=== PATIENT | male | born 1970 | race Caucasian/White ===

== ENCOUNTER 2016-05-05 19:28 | Emergency (ER) | payer OTHER ==
[2013-01-30 04:21] VITALS: BMI 35.7
[~2016-05-05 19:28] MED LIST: ATIVAN1 MG PO
== END 2016-05-05 22:36 | disposition home or self-care (01) ==
LOC: D.ER 19:28
DX: K02.9 Dental caries, unspecified (principal); F43.10 Post-traumatic stress disorder, unspecified

== ENCOUNTER 2016-08-29 13:59 | Emergency (ER) | payer MEDICAID ==
[2013-01-30 04:21] VITALS: BMI 35.7
== END 2016-08-29 17:18 | disposition home or self-care (01) ==
LOC: D.ER 13:59
DX: K02.9 Dental caries, unspecified (principal); K08.89 Other specified disorders of teeth and supporting structures; K05.10 Chronic gingivitis, plaque induced; S02.5XXA Fracture of tooth (traumatic), initial encounter for closed fracture; X58.XXXA Exposure to other specified factors, initial encounter; Y93.89 Activity, other specified; Y92.89 Other specified places as the place of occurrence of the external cause; K12.2 Cellulitis and abscess of mouth; F43.10 Post-traumatic stress disorder, unspecified

== ENCOUNTER 2016-09-17 00:58 | Emergency (ER) | payer MEDICAID ==
[2013-01-30 04:21] VITALS: BMI 35.7
== END 2016-09-17 02:11 | disposition home or self-care (01) ==
LOC: D.ER 00:58
DX: S40.011A Contusion of right shoulder, initial encounter (principal); W19.XXXA Unspecified fall, initial encounter; M54.5 Low back pain; M79.605 Pain in left leg; M79.604 Pain in right leg; M79.1 Myalgia

== ENCOUNTER 2016-10-30 23:14 | Emergency (ER) | payer MEDICAID ==
[2013-01-30 04:21] VITALS: BMI 35.7
== END 2016-10-30 23:40 | disposition home or self-care (01) ==
LOC: D.ER 23:14
DX: T81.4XXA Infection following a procedure, initial encounter (principal); M27.2 Inflammatory conditions of jaws; F43.10 Post-traumatic stress disorder, unspecified; K02.9 Dental caries, unspecified; K08.89 Other specified disorders of teeth and supporting structures; K05.10 Chronic gingivitis, plaque induced; K04.7 Periapical abscess without sinus; S02.5XXA Fracture of tooth (traumatic), initial encounter for closed fracture; X58.XXXA Exposure to other specified factors, initial encounter; Y93.89 Activity, other specified; Y92.89 Other specified places as the place of occurrence of the external cause

== ENCOUNTER 2017-01-04 23:58 | Inpatient (IN) | payer MEDICAID ==
[2017-01-05 00:40] LABS: BASOPHILS 0.4 % (0-2); EOSINOPHILS 1.7 % (0-7); HEMATOCRIT 47.8 % (42.0-54.0); HEMOGLOBIN 16.1 g/dL (13.5-17.5); IMMATURE GRANULOCYTES 0.3 % (0-5); LYMPHOCYTES 17.4 % (15-50); MCH 29.4 pg (26.0-34.0); MCHC 33.7 g/dL (31.0-37.0); MCV 87.4 fL (80.0-100.0); MEAN PLATELET VOLUME 8.6 fL (7.4-10.4); MONOCYTES 14.1 % (2-11); NEUTROPHILS 66.1 % (40-80); RBC 5.47 10x6/uL (4.20-6.10); RDW 13.5 % (11.5-14.5); WBC 9.5 10x3/uL (4.8-10.8)
[2017-01-05 00:41] LABS: PLATELET COUNT 324 10x3/uL (130-400)
[2017-01-05 00:47] LABS: APTT 26.5 SECONDS (22.8-39.4); INR 0.94 (0.85-1.17); PROTIME 12.4 SECONDS (11.6-15.0)
[2017-01-05 00:53] LABS: ALBUMIN 3.6 g/dL (3.4-5.0); ALKALINE PHOSPHATASE 63 U/L (46-116); ALT (SGPT) 29 U/L (10-68); BILIRUBIN - TOTAL 0.25 mg/dL (0.2-1.3); CALC OSMOLALITY 274 mosm/kg (275-300); CALCIUM 8.6 mg/dL (8.5-10.1); CHLORIDE - SERUM 101 mmol/L (98-107); CREATININE - SERUM 0.8 mg/dL (0.6-1.3); GLUCOSE 104 mg/dL (74-106); POTASSIUM - SERUM 3.7 mmol/L (3.5-5.1); PROTEIN - SERUM 7.8 g/dL (6.4-8.2); SODIUM 138 mmol/L (136-145); UREA NITROGEN 10 mg/dL (7-18); eGFR NON AFRICAN AMERICAN > 90 mL/min (90-120)
[2017-01-05 01:00] LABS: AMYLASE - SERUM 46 U/L (25-115); C-REACTIVE PROTEIN 0.2 mg/dL (0.0-0.9); CREATINE KINASE 170 UL (21-232); LIPASE 111 U/L (73-393); PRO BNP 19 pg/mL (0-125)
[2017-01-05 01:03] LABS: TROPONIN-I < 0.017 ng/mL (0.000-0.060)
[2017-01-05 03:37] LABS: APPEARANCE CLEAR (CLEAR); BILIRUBIN NEGATIVE (NEGATIVE); COLOR YELLOW (YELLOW); GLUCOSE NEGATIVE (NEGATIVE); KETONE SMALL mg/dL (NEGATIVE); NITRITE NEGATIVE (NEGATIVE); PROTEIN NEGATIVE (NEGATIVE); SPECIFIC GRAVITY 1.025 (1.005-1.020); UROBILINOGEN NORMAL (NORMAL)
[2017-01-05 04:00] VITALS: BP 138/77
--- NOTE | 2017-01-05 04:10 | NUR ---
REC'D FROM [facility] IN ER BY WHEELCHAIR. ALERT AND ORIENTED X4. DENIED PAIN AT THIS TIME. DENIED NEEDS AT THIS TIME. PLACED TELEMTRY ON RUNNING 96 SINUS WITH PVCS. NO DISTRESS NOTED. INSTRUCTED TO CALL IF NEEDED ANYTHING, VERBALIZED UNDERSTANDING. BED LOW, LOCKED, CALL LIGHT IN REACH, ALARM ON.
[2017-01-05 04:32] VITALS: BP 138/77; BMI 36.7
--- NOTE | 2017-01-05 07:30 | NUR ---
PT AOX4 RESP EVEN AND NONLABORED PT DENIES NEEDS AT THIS TIME IV TO LEFT HAND PATENT AND INTACT AT THIS TIME SRX2 BED AT LOWEST SETTING CALL LIGHT WITHIN REACH WILL CONTINUE TO MONITOR
[2017-01-05 08:35] VITALS: BP 101/71
[2017-01-05 12:29] VITALS: BP 101/52
[2017-01-05 12:37] LABS: CHOL - HDL RATIO 5.6 ratio (2.3-4.9); LDL-HDL RATIO 4.2 ratio (1.5-3.5)
[2017-01-05 12:42] LABS: CKMB 0.9 U/L (0.0-3.6); CREATINE KINASE 195 UL (21-232)
[2017-01-05 12:43] LABS: TROPONIN-I < 0.017 ng/mL (0.000-0.060)
--- NOTE | 2017-01-05 15:10 | NUR ---
Patient Name: TERESA CASTRO Admission Status: ER Accout number: [id number] Admission Date: 01-05-2017 : 1970 Admission Diagnosis: Attending: GABRIEL MARQUEZ Current LOS: 1 Anticipated DC Date: 01-07-2017 Planned Disposition: Home Primary Insurance: [employer] JOSE Discharge Planning Comments: CM MET WITH PATIENT REGARDING D/C NEEDS AND PLANS. PATIENT STATED HE LIVES WITH HIS MOTHER AND THERE ARE 2 STEPS W/RAILS TO ENTER HOME AND NO STAIRS INSIDE. PATIENT STATED HE IS INDEPENDENT WITH HIS CARE AND HAS NO DME AT HOME. PATIENTS PCP ISS DR. SANCHEZ AND PHARMACY IS [facility]. PATIENT REFUSED HOME HEALTH AT THIS TIME. CM WILL CONTINUE TO FOLLOW PATIENT WITH D/C NEEDS AND PLANS. PCP DR. SANCHEZ [facility]- [phone] SHAHID ([phone]) Director Of Restaurant Operations: Macyrojelio Marsh Is the patient Alert and Oriented? Yes 0 * How many steps to enter\exit or inside your home? 2 W/RAILS 0 * PCP DR. SANCHEZ 0 * Pharmacy [facility] 0 * Preadmission Environment Home with Family 0 * ADLs Independent 0 * Equipment None 0 * List name and contact numbers for known caregivers / representatives who currently or will assist patient after discharge: SHAHID (SISTER) [phone] 0 * Community resources currently utilized None 0 * Additional services required to return to the preadmission environment? Yes 0 * Can the patient safely return to the preadmission environment? Yes 0 * Has this patient been hospitalized within the prior 30 days at any hospital? No 0 Grand Total: 0
[2017-01-05 16:16] VITALS: BP 132/87
--- NOTE | 2017-01-05 19:37 | NUR ---
PATIENT IS REQUESTING MEDICATION FOR A HEADACHE. HE STATED HIS PAIN IN HIS HEAD GOT WORSE AFTER BEING IN THE MRI MACHINE. HE STATED HE IS GETTING NAUSEOUS FROM THE PAIN. HE STATED HE HAD THE SAME HEADACHE LAST NIGHT AND IT HAS BEEN LINGERING SINCE LAST NIGHT BUT IS WORSE NOW THAT HE WAS IN THE MRI MACHINE. PAGED JAMEEL MONTES.
[2017-01-05 19:45] LABS: CKMB 0.8 U/L (0.0-3.6); CREATINE KINASE 198 UL (21-232)
[2017-01-05 19:47] LABS: TROPONIN-I < 0.017 ng/mL (0.000-0.060)
[2017-01-05 20:00] VITALS: BP 103/54
[2017-01-06] VITALS: BP 106/69
[2017-01-06 00:08] LABS: CKMB 0.8 U/L (0.0-3.6); CREATINE KINASE 204 UL (21-232)
[2017-01-06 00:09] LABS: TROPONIN-I < 0.017 ng/mL (0.000-0.060)
--- NOTE | 2017-01-06 00:29 | NUR ---
EDUCATED PATIENT ON SCDS. APPLIED SCDS TO BILATERAL LEGS.
[2017-01-06 04:53] LABS: BASOPHILS 0.4 % (0-2); EOSINOPHILS 1.6 % (0-7); HEMOGLOBIN 14.8 g/dL (13.5-17.5); IMMATURE GRANULOCYTES 0.1 % (0-5); LYMPHOCYTES 24.5 % (15-50); MCH 29.4 pg (26.0-34.0); MCHC 32.9 g/dL (31.0-37.0); MCV 89.3 fL (80.0-100.0); MEAN PLATELET VOLUME 8.7 fL (7.4-10.4); MONOCYTES 14.2 % (2-11); NEUTROPHILS 59.2 % (40-80); PLATELET COUNT 302 10x3/uL (130-400); RBC 5.04 10x6/uL (4.20-6.10); RDW 13.8 % (11.5-14.5); WBC 7.7 10x3/uL (4.8-10.8)
[2017-01-06 05:07] LABS: ALBUMIN 3.1 g/dL (3.4-5.0); ALKALINE PHOSPHATASE 51 U/L (46-116); ALT (SGPT) 24 U/L (10-68); BILIRUBIN - TOTAL 0.33 mg/dL (0.2-1.3); CALC OSMOLALITY 274 mosm/kg (275-300); CALCIUM 8.6 mg/dL (8.5-10.1); CARBON DIOXIDE 29.4 mmol/L (21.0-32.0); CHLORIDE - SERUM 102 mmol/L (98-107); GLUCOSE 96 mg/dL (74-106); POTASSIUM - SERUM 3.8 mmol/L (3.5-5.1); PROTEIN - SERUM 6.8 g/dL (6.4-8.2); SODIUM 138 mmol/L (136-145); UREA NITROGEN 11 mg/dL (7-18); eGFR NON AFRICAN AMERICAN 77 mL/min (90-120)
[2017-01-06 05:14] LABS: CREATININE - SERUM 1.1 mg/dL (0.6-1.3)
[2017-01-06 05:39] VITALS: BP 124/78
[2017-01-06] MEDS ORDERED: XANAX2 MG PO (06:45)
[2017-01-06 08:52] VITALS: BP 127/71
[2017-01-06 12:52] VITALS: BP 139/75
--- NOTE | 2017-01-06 16:33 | NUR ---
OT NOTE: PT COMPLETED EOB SITTING WITH SBA. PT COMPLETED BUE AROM FOR INCREASED ACTIVITY TOLERANCE. THANK YOU, COLLEEN MAXWELL/Dex
[2017-01-06 16:38] VITALS: BP 153/99
--- NOTE | 2017-01-06 19:45 | NUR ---
PT AOX4, DENIES ANY NEEDS AT THIS TIME. SRX2 DIOR ALARM ON. CALL LIGHT IN REACH. WILL CONTINUE TO MONITOR.
[2017-01-06 20:00] VITALS: BP 126/87
--- NOTE | 2017-01-06 22:01 | EC ---
PATIENT:TERESA CASTRO DATE OF SERVICE: 01/05/17 SEX: M MEDICAL RECORD: [id number] DATE OF : [birth year] LOCATION:D[facility] [place] AGE OF PATIENT: 46 ADMISSION DATE: 01/05/17 REFERRING PHYSICIAN: INTERPRETING PHYSICIAN: CHAO YANG MD ECHOCARDIOGRAM REPORT ECHO CHARGES 4 ECHO COMPLETE CLINICAL DIAGNOSIS: COLLAPSE ECHOCARDIOGRAPHIC MEASUREMENTS (adult normal given) AC root (d.<3.7cm) 3.3 cm LV Septum d (<1.2 cm> 2.0 cm Valve Excursion 2.1 cm LV Septum (systole) 2.4 cm Left Atria (s.<4.0cm> 3.7 cm LVPW d(<1.2cm) 1.3 cm RV (d.<2.3cm) 3.2 cm LVPW (sytole) 2.2 cm LV diastole(<5.6CM) 5.0 cm MV E-F(>70mm/sec) cm LV systole 2.5 cm LVOT Diameter 2.2 cm MV exc.(>10mm) cm Est.ejection fraction (50-75%) % Pericardial Effusion N DOPPLER: LVIT cm/sec A 65.0 cm/sec E 79.0 cm/sec LA cm/sec RVSP 31.0 mmHg LVOT 102 cm/sec AOP1/2T m/s Asc. Ao 134 cm/sec RVOT 68.0 cm/sec RA cm/sec PA 122 cm/sec AV Gradient Peak 7.1 mmHg AV Mean 2.7 mmHg AV Area 2.7 cm MV Gradient Peak 4.5 mmHg MV Mean 1.9 mmHg MV Area cm COMMENTS: Mold Presser: Manolo KIRK IPSW[employer] College Football Coach: 4 Dr. Yang TAPE# PACS DATE OF SERVICE: 01/05/2017 PROCEDURE: Transthoracic echocardiogram. FINDINGS: 1. Left ventricle shows moderate concentric left ventricular hypertrophy with ejection fraction of 55%. Inflow characteristics are normal. 2. The mitral valve is shown to have trace to mild mitral regurgitation, otherwise structurally normal. 3. The left atrium showed to be normal size, normal structure, and normal ECHOCARDIOGRAM REPORT [id number] TERESA CASTRO function. 4. The right ventricle is mild to moderately dilated with normal function. Evidence of right ventricular hypertrophy. 5. The aortic valve is normal. 6. The pericardium is normal. There is no pericardial effusion. 7. The pulmonary valve is not well visualized, but grossly normal by Doppler evaluation. IMPRESSION: Evidence of hypertensive heart disease, mild elevations in the right ventricular systolic pressure. There is mild dilatation in the right-sided structures, but with preserved hyperdynamic left ventricular function. TRANSINT:[id number] Voice Confirmation ID: [id number] DOCUMENT ID: [id number] CHAO YANG MD at 2201 CC: [id number] DICTATION DATE: 01/05/17 155 GRAPHICS MANAGER: 01/05/17 2148 ADM IN [facility] [address] [id number]
[2017-01-07 04:00] VITALS: BP 139/100
[2017-01-07 05:51] LABS: BASOPHILS 0.3 % (0-2); EOSINOPHILS 1.2 % (0-7); HEMATOCRIT 45.5 % (42.0-54.0); HEMOGLOBIN 15.3 g/dL (13.5-17.5); IMMATURE GRANULOCYTES 0.1 % (0-5); LYMPHOCYTES 17.5 % (15-50); MCH 29.7 pg (26.0-34.0); MCHC 33.6 g/dL (31.0-37.0); MCV 88.3 fL (80.0-100.0); MEAN PLATELET VOLUME 8.9 fL (7.4-10.4); MONOCYTES 9.4 % (2-11); NEUTROPHILS 71.5 % (40-80); PLATELET COUNT 297 10x3/uL (130-400); RBC 5.15 10x6/uL (4.20-6.10); RDW 13.5 % (11.5-14.5)
[2017-01-07 06:09] LABS: WBC 9.7 10x3/uL (4.8-10.8)
[2017-01-07 06:18] LABS: ALBUMIN 3.3 g/dL (3.4-5.0); ALKALINE PHOSPHATASE 53 U/L (46-116); ALT (SGPT) 25 U/L (10-68); BILIRUBIN - TOTAL 0.32 mg/dL (0.2-1.3); CALC OSMOLALITY 274 mosm/kg (275-300); CALCIUM 8.6 mg/dL (8.5-10.1); CARBON DIOXIDE 25.5 mmol/L (21.0-32.0); CHLORIDE - SERUM 101 mmol/L (98-107); CREATININE - SERUM 0.9 mg/dL (0.6-1.3); GLUCOSE 129 mg/dL (74-106); POTASSIUM - SERUM 3.4 mmol/L (3.5-5.1); PROTEIN - SERUM 7.3 g/dL (6.4-8.2); SODIUM 137 mmol/L (136-145); UREA NITROGEN 9 mg/dL (7-18); eGFR NON AFRICAN AMERICAN > 90 mL/min (90-120)
[2017-01-07 08:54] VITALS: BP 134/74
--- NOTE | 2017-01-07 10:39 | NUR ---
OT NOTE: PT SEEN IN AM. REPORTED THAT HE HAD ANOTHER EPISODE OF DIZZINESS LAST NIGHT AROUND 6PM WHILE COMING OUT OF BATHROOM. PT DESCRIBED IT THE FEELING YOU GET WHEN YOU ARE STANDING ON A BOAT..REPORTED THAT IT ONLY LASTS FOR A FEW SECONDS. ALSO STATED THAT HE SPOKE WITH HIS MOM EARLIER, AND SHE REMINDED HIM THAT HE HAD "LOST " 3 DAYS OF HIS MEMORY APPROX 1 WK BEFORE ENTERING HOSPITAL. HE STATED THAT HE DIDNT REMEMBER ANYTHING FROM TUE THROUGH SAT. PT STATED HIS BP WAS HIGH LAST NIGHT. HAD PT SIT ON EDGE OF BED AND REACH FORWARD TOWARDS FEET, THEN RETURN TO SITTING POSITION AND THEN STANDING POSITION. THIS WAS PERFORMED 2 TIMES BUT DID NOT ELICIT ANY DIZZINESS. PT REMAINS FRUSTRATED TO WHAT IS CAUSING THIS.
[2017-01-07 13:04] VITALS: BP 136/85
[2017-01-07 17:34] VITALS: BP 128/84
--- NOTE | 2017-01-07 17:37 | NUR ---
OT NOTE: PT COMPLETED BED MOB AND EOB SITTING WITH SPV. PT COMPLETED BUE STRENGTHING EXS FOR INCREASED I. THANK YOU, COLLEEN MAXWELL/Dex
[2017-01-07 20:00] VITALS: BP 149/99
[2017-01-08 04:00] VITALS: BP 122/91
[2017-01-08 05:57] LABS: BASOPHILS 0.4 % (0-2); EOSINOPHILS 1.6 % (0-7); HEMATOCRIT 46.5 % (42.0-54.0); HEMOGLOBIN 15.7 g/dL (13.5-17.5); IMMATURE GRANULOCYTES 0.1 % (0-5); LYMPHOCYTES 18.9 % (15-50); MCH 29.7 pg (26.0-34.0); MCHC 33.8 g/dL (31.0-37.0); MCV 87.9 fL (80.0-100.0); MEAN PLATELET VOLUME 8.9 fL (7.4-10.4); MONOCYTES 12.7 % (2-11); NEUTROPHILS 66.3 % (40-80); PLATELET COUNT 295 10x3/uL (130-400); RBC 5.29 10x6/uL (4.20-6.10); RDW 13.5 % (11.5-14.5); WBC 9.5 10x3/uL (4.8-10.8)
[2017-01-08 06:18] LABS: ALBUMIN 3.5 g/dL (3.4-5.0); ALKALINE PHOSPHATASE 49 U/L (46-116); ALT (SGPT) 28 U/L (10-68); CALC OSMOLALITY 279 mosm/kg (275-300); CALCIUM 8.9 mg/dL (8.5-10.1); CARBON DIOXIDE 25.9 mmol/L (21.0-32.0); CHLORIDE - SERUM 104 mmol/L (98-107); CREATININE - SERUM 0.9 mg/dL (0.6-1.3); GLUCOSE 92 mg/dL (74-106); POTASSIUM - SERUM 3.6 mmol/L (3.5-5.1); PROTEIN - SERUM 7.3 g/dL (6.4-8.2); SODIUM 141 mmol/L (136-145); UREA NITROGEN 11 mg/dL (7-18); eGFR NON AFRICAN AMERICAN > 90 mL/min (90-120)
--- NOTE | 2017-01-08 07:40 | NUR ---
ASSESSMENT COMPLETE. SL TO L AC. DIAL PAINTER SHOWING 68 PER TECH. SITTING UP IN CHAIR. REPORTS HE IS NO LONGER EXPERIENCING SYMPTOMS THAT WERE PRESENT BEFORE ADMISSION. FAMILY AT BEDSIDE.
--- NOTE | 2017-01-08 07:55 | NUR ---
ASSESSMENT COMPLETE.SL TO L HAND PATENT. WALL CLEANER SHOWING SR WITH PVC'S 82 PER TECH. DIOR ALARM IN USE. DENIES ANY NEEDS AT THIS TIME.
[2017-01-08 08:32] VITALS: BP 126/86
--- NOTE | 2017-01-08 12:00 | NUR ---
NO CHANGES NOTED AT PRESENT.
[2017-01-08 12:03] VITALS: BP 152/96
--- NOTE | 2017-01-08 12:40 | NUR ---
CM REASSESSMENT NOTE: PATIENT IS DISCHARGING HOME TODAY/MOTHER IS DRIVING HIM. PATIENT HAD NO NEEDS FOR DISCHARGE AND REFUSED HOME HEALTH.
--- NOTE | 2017-01-08 14:10 | NUR ---
DISCHARGE TEACHING GIVEN TO PATIENT. VOICED UNDERSTANDING. SL REMOVED. CATHETER TIP INTACT. VITICULTURIST REMOVED.
--- NOTE | 2017-01-08 14:30 | NUR ---
DC'D HOME WITH FAMILY. ESCORTED TO VEHICLE BY VOLUNTEER [facility]IA [facility].
--- NOTE | 2017-01-11 07:29 | EEG ---
PATIENT:TERESA CASTRO DATE OF SERVICE: 01/05/17 MEDICAL RECORD: [id number] DATE OF : 74 LOCATION:D.223 D.MS ADMISSION DATE: 01/05/17 REFERRING PHYSICIAN: INTERPRETING PHYSICIAN: BLADE ISRAEL MD DATE OF SERVICE: 01/07/2017 Referred by myself as an inpatient, in room 2230. ELECTROENCEPHALOGRAM NUMBER: [id number] DATE OF EXAMINATION: 01/07/2017 at 7:30 a.m. TECHNICAL DATA: This electroencephalographic recording consisted of approximately 20 minutes of data collection utilizing the international 10/20 system of electrode placement and both referential and non-referential montages. Sixteen channels of electrocerebral recording are accompanied by a 17th channel dedicated to the electrocardiographic rhythm and 2 channels of electromyographic recording. Recording is performed entirely in the waking state utilizing activation by hyperventilation and photic stimulation. ELECTROENCEPHALOGRAPHIC DATA: The awake state comprises the entirety of the recorded electrocerebral activity. Electromyographic artifact is prominent and rapid eye movements are seen. The posterior dominant background consists of a well-developed, symmetric, rhythmic, waxing and waning alpha activity of 10-11 Hz, which is suppressed by eye opening. No abnormal or focal slowing is identified. No epileptiform discharges are seen. Hyperventilation and photic stimulation induced no abnormal change in the recorded electrocerebral activity. INTERPRETATION: Normal (awake). This is a normal waking electroencephalographic recording. TRANSINT:[id number] Voice Confirmation ID: [id number] DOCUMENT ID: [id number] BLADE ISRAEL MD at 0729 CC: [id number] DICTATION DATE: 01/08/17 0758 [employer]ORER [employer]: 01/08/17 0901 DIS IN 01/08/17 [facility] [address] [place] [address]
== END 2017-01-08 14:30 | disposition home or self-care (01) | DRG 880 ==
LOC: D.ER 23:58 → D.MS 01-05 02:37 → OBSVTIME 01-05 02:37 → D.MS 01-05 12:11
PROVIDERS: Family Medicine; ADMIT Family Medicine
DX: F41.8 Other specified anxiety disorders (principal); R27.0 Ataxia, unspecified; Z91.81 History of falling; R53.1 Weakness; F43.10 Post-traumatic stress disorder, unspecified; K21.9 Gastro-esophageal reflux disease without esophagitis; I11.9 Hypertensive heart disease without heart failure

== ENCOUNTER 2017-04-11 12:31 | Emergency (ER) | payer MEDICAID ==
[~2017-04-11 12:31] MED LIST changes: +XANAX2 MG PO
[2017-04-11 15:02] LABS: ALBUMIN 4.3 g/dL (3.4-5.0); ANION GAP 16.8 mmol/L (8-16); BILIRUBIN - TOTAL 0.34 mg/dL (0.2-1.3); CALCIUM 9.5 mg/dL (8.5-10.1); CREATININE - SERUM 1.3 mg/dL (0.6-1.3); POTASSIUM - SERUM 3.8 mmol/L (3.5-5.1); PROTEIN - SERUM 8.5 g/dL (6.4-8.2)
== END 2017-04-11 15:34 | disposition home or self-care (01) ==
LOC: D.ER 12:31
PROVIDERS: Physician Assistant Medical
DX: F41.9 Anxiety disorder, unspecified (principal); Z91.14 Patient's other noncompliance with medication regimen

== ENCOUNTER 2018-04-23 13:44 | Emergency (ER) | payer OTHER ==
[~2018-04-23] VITALS: Ht 185.4 cm; Wt 129.5 kg
[2018-04-23 14:01] VITALS: Ht 185.4 cm; Wt 129.5 kg
[2018-04-23] MEDS ORDERED: TOFRANIL25 MG PO (14:03)
[2018-04-23] MEDS ORDERED: LUNESTA1 MG PO (14:03)
[2018-04-23] MEDS ORDERED: PROZAC10 MG PO (14:04)
[2018-04-23 15:10] LABS: BASOPHILS 0.7 % (0-2); EOSINOPHILS 1.2 % (0-7); HEMATOCRIT 50.1 % (42.0-54.0); IMMATURE GRANULOCYTES 0.1 % (0-5); LYMPHOCYTES 15.9 % (15-50); MCH 30.9 pg (26.0-34.0); MCHC 33.9 g/dL (31.0-37.0); MCV 91.1 fL (80.0-100.0); MEAN PLATELET VOLUME 8.7 fL (7.4-10.4); MONOCYTES 11.8 % (2-11); NEUTROPHILS 70.3 % (40-80); PLATELET COUNT 296 10x3/uL (130-400); RDW 12.9 % (11.5-14.5); WBC 9.2 10x3/uL (4.8-10.8)
[2018-04-23 15:11] LABS: APPEARANCE CLEAR (CLEAR); BILIRUBIN NEGATIVE (NEGATIVE); COLOR YELLOW (YELLOW); GLUCOSE NEGATIVE (NEGATIVE); KETONE NEGATIVE (NEGATIVE); NITRITE NEGATIVE (NEGATIVE); PROTEIN NEGATIVE (NEGATIVE); UROBILINOGEN NORMAL (NORMAL)
[2018-04-23 15:25] LABS: ANION GAP 10.6 mmol/L (8-16); BILIRUBIN - TOTAL 0.47 mg/dL (0.2-1.3); CALCIUM 8.5 mg/dL (8.5-10.1); CARBON DIOXIDE 29.9 mmol/L (21.0-32.0); CREATININE - SERUM 1.3 mg/dL (0.6-1.3); POTASSIUM - SERUM 4.5 mmol/L (3.5-5.1); PROTEIN - SERUM 8.7 g/dL (6.4-8.2)
[2018-04-23] MEDS ORDERED: VOLTAREN75 MG PO (16:36)
[2018-04-23 17:36] VITALS: BP 142/78
== END 2018-04-23 17:37 | disposition home or self-care (01) ==
LOC: D.ER 13:44
PROVIDERS: Family Medicine
DX: R33.9 Retention of urine, unspecified (principal)